=== PATIENT | male | born 1990 | race Asian ===

== ENCOUNTER 2017-04-14 00:02 | Emergency (ER) | payer OTHER ==
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
--- NOTE | 2017-04-14 12:08 | Diagnostic Imaging Report ---
Right shoulder (3 views) HISTORY: Pain, trauma No acute abnormalities. No fractures. No dislocation. IMPRESSION: No acute bony abnormalities
== END 2017-04-14 04:15 | disposition home or self-care (01) ==
LOC: ER 00:02
DX: S42.91XA Fracture of right shoulder girdle, part unspecified, initial encounter for closed fracture (principal); V89.2XXA Person injured in unspecified motor-vehicle accident, traffic, initial encounter; Y93.89 Activity, other specified; Y92.488 Other paved roadways as the place of occurrence of the external cause; Y99.8 Other external cause status
CPT/HCPCS: 73030-TC-RT; Z7502